=== PATIENT | male | born 1980 | race Hispanic/Latino ===

== ENCOUNTER 2019-05-26 08:17 | Emergency (ER) | payer SELFPAY ==
[2019-05-26] MEDS ORDERED: Sodium Chloride 0.9% 1,000 ML ONE (08:46)
[2019-05-26] MEDS ORDERED: Ondansetron PF 4 MG/2 ML Vial ONE (08:46)
[2019-05-26] MEDS ORDERED: Pantoprazole 40 MG VIAL ONE (09:11)
[2019-05-26] MEDS ORDERED: Ketorolac Tromethamine 30 MG/ML VIAL ONE (09:11)
[2019-05-26 09:13] LABS: Bilirubin Negative (Negative); Blood, Urine Negative (Negative); Clarity Clear (Clear); Glucose, Urine (Dipstick) Negative (Negative); Leukocyte Negative (Negative); Nitrite Negative (Negative); Protein, Urine (Dipstick) 100 mg/dL (Neg-Trace); Urobilinogen 0.2 mg/dL (Less than 2)
[2019-05-26 09:26] LABS: Amphetamine Detected (NotDetected); Barbiturates Screen Not Detected (NotDetected); Benzodiazepine Screen Not Detected (NotDetected); Cocaine Metabolite Screen Not Detected (NotDetected); Medtox Control Line Valid? VALID (VALID); Methadone Not Detected (NotDetected); Methamphetamine Detected (NotDetected); Opiate Screen Not Detected (NotDetected); Oxycodone Screen Not Detected (NotDetected); Phencyclidine (PCP) Not Detected (NotDetected); THC/Cannabinoid Screen Not Detected (NotDetected); Tricyclic Screen Not Detected (NotDetected)
[2019-05-26 09:30] LABS: #Basophils 0.2 thou/uL (0.0-0.2); #Eosinphils 0.2 thou/uL (0.0-0.7); #Lymphocytes 1.2 thou/uL (1.20-3.40); #Neutrophils 13.3 thou/uL (1.40-6.50); %Eosinophils 1.2 % (0.0-10.0); %Lymphocytes 7.5 % (21.0-51.0); %Monocytes 6.5 % (0.0-10.0); %Neutrophils 83.7 % (42.0-75.0); Hemoglobin 14.8 g/dL (14.0-18.0); Mean Corpuscular HGB CONC 33.2 g/dL (32.0-36.0); Mean Corpuscular Hemoglobin 29.3 pg (27.0-31.0); Mean Corpuscular Volume 88.3 fL (78.0-98.0); Mean Platelet Volume 6.3 fL (7.4-10.4); Platelet Count 377 thou/uL (130-400); RBC Distribution Width 11.3 % (11.5-14.5); Red Blood Cell (RBC) Count 5.05 mill/uL (4.70-6.10); White Blood Cell (WBC) Count 15.9 thou/uL (4.8-10.8)
[2019-05-26 09:33] LABS: ALT (SGPT) 34 U/L (8-55); AST (SGOT) 19 U/L (5-34); Albumin 4.3 g/dL (3.5-5.0); Alkaline Phosphatase 105 U/L (40-150); Anion Gap 16 mmol/L (10-20); BUN (Urea Nitrogen) 11 mg/dL (8.9-20.6); Bilirubin, Total 0.4 mg/dL (0.2-1.2); Calc. Creatinine Clearance 0 mL/min (70-130); Calcium 9.1 mg/dL (7.8-10.44); Carbon Dioxide 22 mmol/L (22-29); Chloride 104 mmol/L (98-107); Estimated GFR-MDRD 73; Globulin 2.7 g/dL (2.4-3.5); Glucose 112 mg/dL (70-105); Lipase 15 U/L (8-78); Potassium 3.9 mmol/L (3.5-5.1); RBC/HPF None Seen HPF (0-3); Sodium 138 mmol/L (136-145)
[2019-05-26 09:34] LABS: Bacteria/HPF Rare-Few HPF (None Seen); Mucous/LPF Few LPF (<2+); Other Microscopic Description NO; Squamous Epithelial 0-3 HPF (0-3); WBC/HPF None Seen HPF (0-3)
== END 2019-05-26 10:26 | disposition home or self-care (01) ==
LOC: NAV ERS 08:17
DX: A04.9 Bacterial intestinal infection, unspecified (principal); F41.9 Anxiety disorder, unspecified; F17.210 Nicotine dependence, cigarettes, uncomplicated
CPT/HCPCS: 80053; 80306; 81003; 81015; 83630; 83690; 85025; 87045; 87046; 87427; 87449; 96361; 96374; 96375; C9113; J1885; J2405; J7050

== ENCOUNTER 2019-12-12 03:10 | Emergency (ER) | payer SELFPAY ==
[2019-12-12] MEDS ORDERED: Sulfameth/Trimethoprim DS 800-160mg TAB ONE (03:38)
== END 2019-12-12 03:45 | disposition home or self-care (01) ==
LOC: NAV ERS 03:10
DX: H05.012 Cellulitis of left orbit (principal); B00.1 Herpesviral vesicular dermatitis; F17.210 Nicotine dependence, cigarettes, uncomplicated; F41.9 Anxiety disorder, unspecified; F41.0 Panic disorder [episodic paroxysmal anxiety]
CPT/HCPCS: 99283

== ENCOUNTER 2020-07-03 07:06 | Emergency (ER) | payer SELFPAY | END 2020-07-03 07:43 | disposition home or self-care (01) | LOC: NAV ERS 07:06 | DX: A05.9 Bacterial foodborne intoxication, unspecified (principal); F41.9 Anxiety disorder, unspecified; F17.210 Nicotine dependence, cigarettes, uncomplicated | CPT/HCPCS: 99283 ==

== ENCOUNTER 2021-05-22 02:44 | Emergency (ER) | payer SELFPAY ==
[2021-05-22] MEDS ORDERED: Ibuprofen 200 MG TAB ONE (03:08)
[2021-05-22] MEDS ORDERED: traMADol HCl 50 MG TAB ONE (03:08)
[2021-05-22] MEDS ORDERED: Clindamycin 150 MG CAP ONE (03:12)
== END 2021-05-22 03:22 | disposition home or self-care (01) ==
LOC: NAV ERS 02:44
DX: K02.9 Dental caries, unspecified (principal); F17.210 Nicotine dependence, cigarettes, uncomplicated
CPT/HCPCS: 99282

== ENCOUNTER 2022-10-16 10:54 | Emergency (ER) | payer OTHER, SELFPAY ==
[2022-10-16] MEDS ORDERED: traMADol HCl 50 MG TAB ONE (11:23)
[2022-10-16] MEDS ORDERED: Ibuprofen 800 MG TAB ONE (11:26)
== END 2022-10-16 12:08 | disposition home or self-care (01) ==
LOC: NAV ERS 10:54
DX: S60.221A Contusion of right hand, initial encounter (principal); W01.0XXA Fall on same level from slipping, tripping and stumbling without subsequent striking against object, initial encounter; Z87.891 Personal history of nicotine dependence

== ENCOUNTER 2022-11-18 15:00 | Emergency (ER) | payer SELFPAY ==
[2022-11-18] MEDS ORDERED: Acetaminophen 500 MG TAB ONE (16:35)
== END 2022-11-18 16:40 | disposition home or self-care (01) ==
LOC: NAV ERS 15:00
DX: J10.1 Influenza due to other identified influenza virus with other respiratory manifestations (principal); Z20.822 Contact with and (suspected) exposure to COVID-19
CPT/HCPCS: 87081; 87430; 87804; 99283; U0003; U0005

== ENCOUNTER 2023-04-04 17:24 | Emergency (ER) | payer SELFPAY ==
[2023-04-04] MEDS ORDERED: Clindamycin 150 MG CAP ONE (17:45)
[2023-04-04] MEDS ORDERED: Ketorolac Tromethamine 30 MG/ML VIAL ONE ×2 (17:45→17:49)
== END 2023-04-04 18:13 | disposition home or self-care (01) ==
LOC: NAV ERS 17:24
DX: K04.7 Periapical abscess without sinus (principal); F17.210 Nicotine dependence, cigarettes, uncomplicated
CPT/HCPCS: 96372; 99282; J1885

== ENCOUNTER 2023-07-06 12:57 | Emergency (ER) | payer BC, SELFPAY | END 2023-07-06 13:26 | disposition home or self-care (01) | LOC: NAV ERS 12:57 | DX: K04.7 Periapical abscess without sinus (principal); K02.9 Dental caries, unspecified; F17.210 Nicotine dependence, cigarettes, uncomplicated | CPT/HCPCS: 99283 ==

== ENCOUNTER 2024-04-21 14:26 | Emergency (ER) | payer BC ==
[2024-04-21] MEDS ORDERED: Pantoprazole 40 MG VIAL ONE (15:15)
[2024-04-21] MEDS ORDERED: Ketorolac Tromethamine 30 MG (1 mL) VIAL ONE (15:15)
[2024-04-21] MEDS ORDERED: Lactated Ringer's 1,000 ML ONE ×2 (15:15→16:02)
[2024-04-21 15:32] LABS: #Basophils 0.1 thou/uL (0.0-0.2); #Eosinphils 0.4 thou/uL (0.0-0.7); #Monocytes 0.6 thou/uL (0.11-0.59); #Neutrophils 5.6 thou/uL (1.40-6.50); %Basophils 1.7 % (0.0-1.0); %Eosinophils 4.4 % (0.0-10.0); %Lymphocytes 22.7 % (21.0-51.0); %Monocytes 7.3 % (0.0-10.0); %Neutrophils 63.9 % (42.0-75.0); Hematocrit 47.1 % (42.0-52.0); Hemoglobin 15.3 g/dL (14.0-18.0); Mean Corpuscular HGB CONC 32.4 g/dL (32.0-36.0); Mean Corpuscular Hemoglobin 28.1 pg (27.0-31.0); Mean Corpuscular Volume 86.5 fl (78.0-98.0); Mean Platelet Volume 6.9 fL (7.4-10.4); Platelet Count 393 10x3/uL (130-400); RBC Distribution Width 10.8 % (11.5-14.5); Red Blood Cell (RBC) Count 5.44 mill/uL (4.70-6.10); White Blood Cell (WBC) Count 8.7 10x3/uL (4.8-10.8)
[2024-04-21 15:47] LABS: ALT (SGPT) 51 U/L (8-55); AST (SGOT) 33 U/L (5-34); Albumin 4.4 g/dL (3.5-5.0); Alkaline Phosphatase 102 U/L (40-110); Anion Gap 16 mmol/L (10-20); BUN (Urea Nitrogen) 25 mg/dL (8.9-20.6); Bilirubin, Total 0.5 mg/dL (0.2-1.2); CK (CPK) 267 U/L (30-200); Calc. Creatinine Clearance 0 mL/min (70-130); Calcium 9.7 mg/dL (7.8-10.44); Carbon Dioxide 21 mmol/L (22-29); Chloride 105 mmol/L (98-107); Estimated GFR 75; Globulin 3.6 g/dL (2.4-3.5); Glucose 98 mg/dL (70-105); Lipase 15 U/L (8-78); Potassium 4.4 mmol/L (3.5-5.1); Sodium 138 mmol/L (136-145)
== END 2024-04-21 17:29 | disposition home or self-care (01) ==
LOC: NAV ERS 14:26
DX: A08.4 Viral intestinal infection, unspecified (principal); T67.2XXA Heat cramp, initial encounter; E86.0 Dehydration; F17.210 Nicotine dependence, cigarettes, uncomplicated
CPT/HCPCS: 80053; 82550; 83690; 84443; 85025; 96361; 96374; 96375; J1885; J2470; J7120